=== PATIENT | female | born 1995 | race Caucasian/White ===

== ENCOUNTER 2020-05-18 19:05 | Emergency (ER) | payer OTHER ==
[~2020-05-18 19:05] MED LIST: NORCO 5-325 TA1 EACH PO; ZOFRAN4 MG PO
== END 2020-05-18 20:54 | disposition left against medical advice (07) ==
LOC: ER1 19:05
DX: Z53.21 Procedure and treatment not carried out due to patient leaving prior to being seen by health care provider (principal)

== ENCOUNTER 2020-07-04 18:21 | Emergency (ER) | payer OTHER ==
[2020-07-04 21:00] LABS: BUN/CREATININE RATIO 16 (0-10)
[2020-07-04 21:12] LABS: HEMOGLOBIN 14.2 gm/dl (12.3-15.3); RED BLOOD COUNT 4.89 M/UL (4.00-5.10)
[2020-07-05] MEDS ORDERED: REGLAN5 MG PO (00:56)
[2020-07-05] MEDS ORDERED: MACROBID 100 M100 M1 PO (00:56)
== END 2020-07-05 01:24 | disposition home or self-care (01) ==
LOC: ER1 18:21
PROVIDERS: Student in an Organized Health Care Education/Training Program
DX: O23.41 Unspecified infection of urinary tract in pregnancy, first trimester (principal); F17.210 Nicotine dependence, cigarettes, uncomplicated; Z3A.01 Less than 8 weeks gestation of pregnancy; Z90.49 Acquired absence of other specified parts of digestive tract
CPT/HCPCS: 80053; 81001; 82550; 82553; 83690; 84702; 85025; 96374; 99284; J2765

== ENCOUNTER 2020-08-12 21:22 | Emergency (ER) | payer OTHER ==
[~2020-08-12 21:22] MED LIST changes: +MACROBID 100 M100 M1 PO; +REGLAN5 MG PO
[2020-08-12 23:09] LABS: HEMOGLOBIN 12.1 gm/dl (12.3-15.3); RED BLOOD COUNT 4.03 M/UL (4.00-5.10); WHITE BLOOD COUNT 6.7 K/UL (4.5-11.0)
[2020-08-12 23:38] LABS: BUN/CREATININE RATIO 23 (0-10)
== END 2020-08-13 01:40 | disposition home or self-care (01) ==
LOC: ER1 21:22
PROVIDERS: Physician Assistant
DX: O99.891 Other specified diseases and conditions complicating pregnancy (principal); R10.30 Lower abdominal pain, unspecified; R30.0 Dysuria; O99.331 Smoking (tobacco) complicating pregnancy, first trimester; F17.210 Nicotine dependence, cigarettes, uncomplicated; Z90.49 Acquired absence of other specified parts of digestive tract; Z3A.13 13 weeks gestation of pregnancy
CPT/HCPCS: 80053; 81001; 83690; 84702; 85025; 87086; 99284

== ENCOUNTER 2021-01-10 03:21 | Outpatient (CLI) | payer OTHER | END 2021-01-10 08:58 | disposition other institution (70) | LOC: GENOP 03:21 | DX: O60.03 Preterm labor without delivery, third trimester (principal); Z3A.34 34 weeks gestation of pregnancy; O99.513 Diseases of the respiratory system complicating pregnancy, third trimester; J45.909 Unspecified asthma, uncomplicated; O36.8130 Decreased fetal movements, third trimester, not applicable or unspecified | CPT/HCPCS: 81001; 82731; 87661; 96365; 96366; 96367; 96374; J0702; J7120 ==

== ENCOUNTER 2021-02-02 07:49 | Inpatient (IN) | payer OTHER ==
[2021-02-02 08:40] LABS: HEMOGLOBIN 12.9 gm/dl (12.3-15.3); RED BLOOD COUNT 4.31 M/UL (4.00-5.10); WHITE BLOOD COUNT 11.2 K/UL (4.5-11.0)
[2021-02-02 09:26] LABS: BUN/CREATININE RATIO 18 (0-10)
[2021-02-02] MEDS ORDERED: IBUPROFEN600 MG PO (13:49)
[2021-02-02] MEDS ORDERED: FEROSUL325 MG PO (13:49)
[2021-02-02] MEDS ORDERED: DOCUSATE SODIU250 MG PO (13:49)
[2021-02-03 07:07] LABS: HEMOGLOBIN 11.9 gm/dl (12.3-15.3)
== END 2021-02-04 14:22 | disposition home or self-care (01) | DRG 807 ==
LOC: OB 07:49
PROVIDERS: ADMIT Obstetrics & Gynecology
PROC: 10E0XZZ Delivery of Products of Conception, External Approach (ICD-10-PCS; principal; 2021-02-02)
PROC: 10907ZC Drainage of Amniotic Fluid, Therapeutic from Products of Conception, Via Natural or Artificial Opening (ICD-10-PCS; 2021-02-02)
PROC: 3E033VJ Introduction of Other Hormone into Peripheral Vein, Percutaneous Approach (ICD-10-PCS; 2021-02-02)
DX: O13.4 Gestational [pregnancy-induced] hypertension without significant proteinuria, complicating childbirth (principal); Z37.0 Single live birth; F17.210 Nicotine dependence, cigarettes, uncomplicated; Z20.822 Contact with and (suspected) exposure to COVID-19; O99.334 Smoking (tobacco) complicating childbirth; Z3A.38 38 weeks gestation of pregnancy
CPT/HCPCS: 36415; 51702; 80053; 81001; 82570; 84156; 84550; 85014; 85018; 85025; 90715; J3010; J7120; U0002